=== PATIENT | female | born 1990 | race Caucasian/White ===

== ENCOUNTER 2019-01-03 21:14 | Emergency (ER) | payer OTHER, MEDICAID, SELFPAY ==
[2019-01-03 21:23] VITALS: BP 134/75; PULSE 60; RESP 18; TEMP 36.4; O2SAT 100
--- NOTE | 2019-01-03 22:18 | PC.NURSE ---
Pain worsens with chewing hot or cold foods. Was given bite guard by dentist.
[2019-01-03] MEDS: HYDROCODONE/ACET 5/325 PREPACK 1 BOTTLE MISC (22:24)
--- NOTE | 2019-01-03 23:54 | ED_ITS ---
HPI - Ear Problem General Chief complaint: Ear Stated complaint: RT EAR PAIN Time Seen by Provider: 01/03/19 21:42 Source: patient and family Mode of arrival: ambulatory Limitations: no limitations History of Present Illness HPI Narrative: 28-year-old female, nonsmoker and otherwise healthy presents with a significant other in the chief complaint of severe right ear and jaw pain in the absence of injury. She states she has had this pain for many months, and it started with dental work. She has seen 2 dentists in the past few days whom suggest it is possibly a temporomandibular joint disorder and she was given of bite block today. She denies fever chills. She denies any runny nose, sneezing or cough. She denies any facial swelling or ongoing dental pain. Occasionally she feels popping in her right ear when chewing. She denies any recent swimming, flights or scuba diving MD Complaint: ear pain Location: right ear Duration: constant Severity: severe Relieving factors: other Exacerbating factors: chewing Discharge from ear: no Related Data Previous Rx's Medication Instructions Recorded hydrocodone-acetaminophen 1 tab PO Q4-6H PRN #10 tab 01/03/19 ketorolac 10 mg PO Q6H PRN #14 tab 01/03/19 prednisone 20 mg PO DAILY #5 tab 01/03/19 Review of Systems Constitutional Denies chills, Denies fever(s), Denies lethargy and Denies weakness Eyes Denies change in vision, Denies eye discharge, Denies irritation and Denies loss of vision ENT Ears, Nose, Mouth, and Throat: Denies change in voice, Reports otalgia, Denies neck pain and Denies sore throat Cardiovascular Denies chest pain, Denies irregular heart rhythm, Denies lightheadedness, Denies palpitations, Denies dyspnea, Denies dyspnea on exertion and Denies orthopnea Respiratory Denies cough, Denies dyspnea, Denies dyspnea on exertion and Denies wheezing Gastrointestinal Gastrointestinal: Denies abdominal pain, Denies change in bowel habits, Denies diarrhea, Denies nausea and Denies vomiting Genitourinary Denies hematuria, Denies flank pain, Denies urinary incontinence and Denies urinary urgency Musculoskeletal Denies neck pain Integumentary/Breasts Denies pruritus, Denies erythema, Denies rash and Denies wounds Neurologic Denies confusion, Denies loss of vision and Denies weakness Psychiatric Denies anxiety, Denies confusion, Denies depression, Denies homicidal ideation and Denies suicidal ideation Endocrine Denies palpitations Hematologic/Lymphatic Denies easy bruising Allergic/Immunologic Denies wheezing PFSH Social History Smoking Status: Never smoker Social History Smoking Status: Never smoker Exam Narrative Exam Narrative: GEN: 28-year-old female appears stated age, well nourished and healthy at baseline. She is obviously in pain, rubbing the right side of her head, in tears EYES: Pupils are equal, round, and reactive to light and accommodation. Extraoccular muscles are intact bilaterally. There is no subconjunctival hemorrhage or exudate. ENT: External auditory canals are clear without swelling, redness or drainage. Tympanic membranes are clear bilaterally without retraction, bulging or opacification. Pain with palpation of right TMJ, no clicking noted. Bilateral nares clear and without drainage. No pharyngeal erythema, no tonsillar swelling or exudate. Noted presence of prior dental work, no erythema, drainage or suggestion of abscess CHEST: Lungs are clear to auscultation bilaterally and free of wheezes, rales, or rhonchi. Heart rate is regular rhythm, there are no murmurs, clicks, rubs, or gallops. There is no chest wall tenderness. ABD: Abdomen is soft and nontender. There is no guarding or rebound. Bowel sounds are normal in all 4 quadrants. There is no mass or organomegaly. EXT: Full painless ROM of all extremities with no loss of sensation or strength. SKIN: Warm, pink, and dry. No erythema or rash Initial Vital Signs Initial Vital Signs: Vital Signs Temperature 97.5 F L 01/03/19 21:23 Pulse Rate 60 01/03/19 21:23 Respiratory Rate 18 01/03/19 21:23 Blood Pressure 134/75 01/03/19 21:23 Pulse Oximetry 100 01/03/19 21:23 Course Orders Ordered: Discontinued Medications Hydrocodone Bitart/Acetaminophen (Vicodin Prepack) 1 bottle MISC SEEINSTR ONE Stop: 01/03/19 22:21 Last Admin: 01/03/19 22:24 Dose: 1 bottle Vital Signs - 8 hr 01/03/19 21:23 Temperature 97.5 F L Pulse Rate 60 Respiratory Rate 18 Blood Pressure 134/75 Pulse Oximetry 100 Discharge Plan Departure Patient Disposition: Home Clinical Impression: TMJ arthralgia Qualifiers: Laterality: right Qualified Code(s): M26.621 - Arthralgia of right temporomandibular joint Discharge Date/Time: 01/03/19 22:24 Interventions: ED Discharge Assessment Last Done: 01/03/19 22:27 Instructions: Jaw Pain: It's Not Just Stress Activity Restrictions/Additional Instructions: *You have been diagnosed with [ acute on chronic Right Jaw pain ] *What to do: *Take medications as directed *Follow up with your primary care provider in 2-3 days, call for an appointment. Let them know you were seen in the Emergency Department and that we ask that you be seen in follow up *Return to ER if you should have any new, worsening or concerning symptoms You have been prescribed narcotic medications. While on these medications you cannot drive or operate heavy machinery. Additionally you cannot sign legal documents or perform any duties such as this. 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 Please understand that we cannot provide further refills of narcotics or controlled substances through the ED and your pain management will need to be through your Primary Care Provider Prescriptions: New hydrocodone-acetaminophen 5-325 mg tablet 1 tab PO Q4-6H PRN (Reason: pain) Qty: 10 RF: 0 prednisone 20 mg tablet 20 mg PO DAILY Qty: 5 RF: 0 ketorolac 10 mg tablet 10 mg PO Q6H PRN (Reason: pain) Qty: 14 RF: 0 Referrals: [facility] [Outside] Marito Bland DMD [Physician] -
== END 2019-01-03 22:24 | disposition home or self-care (01) ==
PROVIDERS: Emergency Provider Emergency Medicine
DX: M26.621 Arthralgia of right temporomandibular joint (principal)
CPT/HCPCS: 99282; 99283